=== PATIENT | male | born 1980 ===

== ENCOUNTER 2018-09-23 22:52 | Emergency (ER) | payer BC, OTHER ==
[2018-09-23 23:16] VITALS: BP 167/109; PULSE 61; RESP 18; TEMP 97.6; O2SAT 100
[2018-09-23] MEDS ORDERED: METOCLOPRAMIDE HYDROCHLORIDE 5 MG/ML SOL IV ONE (23:20)
[2018-09-23] MEDS ORDERED: METOCLOPRAMIDE HCL 5 MG/ML 10 MG in SODIUM CHLORIDE 0.9% 50 ML 50 ML IV ONE (23:20)
[2018-09-23] MEDS ORDERED: KETOROLAC TROMETHAMINE 30 MG/ML SOL IV ONE (23:20)
[2018-09-23] MEDS ORDERED: KETOROLAC TROMETHAMINE 30 MG/ML SOL ONE (23:22)
[2018-09-23] MEDS ORDERED: METOCLOPRAMIDE HYDROCHLORIDE 5 MG/ML SOL ONE (23:22)
[2018-09-23] MEDS ORDERED: SODIUM CHLORIDE 0.9% 1000ML 1,000 ML IV SCH (23:30)
== END 2018-09-24 00:47 | disposition home or self-care (01) ==
LOC: ED 22:52
DX: G44.201 Tension-type headache, unspecified, intractable (principal)
CPT/HCPCS: 96365; 96374; 96375; 99282; 99283; J1885; J2765